=== PATIENT | female | born 1975 | race Caucasian/White ===

== ENCOUNTER 2022-01-11 15:06 | Emergency (ER) | payer BC, SELFPAY ==
--- NOTE | ~2022-01-11 | XR_ITS ---
EXAMINATION: XR ankle LT min 3V DATE: 01/11/2022 15:32 INDICATION: Left ankle injury and swelling. TECHNIQUE: 4 views of left ankle were obtained. COMPARISON: None. FINDINGS: Bone alignment is normal. No fracture. Joint spaces are well maintained. There is an enthes ophyte at plantar aspect of calcaneal tuberosity. There is ankle soft tissue swelling. IMPRESSION: 1. No fracture. Reviewed, dictated and finalized at location A. IMPRESSION: 1. No fracture.
--- NOTE | ~2022-01-11 | XR_ITS ---
EXAMINATION: XR foot LT min 3V DATE: 01/11/2022 15:32 INDICATION: Left foot pain TECHNIQUE: Dorsoplantar, lateral, and 2 oblique views of the left foot were obtained. COMPARISON: None. FINDINGS: Bone alignment is normal. There is marked soft tissue swelling of the dorsal/proximal foot. A subtle heterotopic ossification projects dorsal to the navicular on the lateral view. 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 No additional fracture is identified. A plantar calcaneal enthesophyte is noted. IMPRESSION: 1. Subtle heterotopic ossification projecting dorsal to the navicular on the lateral view which could reflect avulsion injury. Reviewed, dictated and finalized at location B. IMPRESSION: 1. Subtle heterotopic ossification projecting dorsal to the navicular on the la teral view which could reflect avulsion injury.
[2022-01-11 15:14] VITALS: BP 128/96; PULSE 92; RESP 18; TEMP 36.4; O2SAT 100
--- NOTE | 2022-01-11 15:42 | PC.NURSE ---
EDP at bedside to assess pt.
--- NOTE | 2022-01-11 16:01 | ED.LOWEXIN ---
HPI - Extremity Injury (Lower) General Chief Complaint: Extremity Injury, Lower Stated Complaint: left foot injury Time Seen by Provider: 01/11/22 15:37 History of Present Illness HPI Narrative: 46-year-old female presents the emergency room complaints of left foot and ankle pain. Patient states just prior to arrival she misstepped off a curb twisting her her ankle. Related Data Allergies Allergy/AdvReac Type Severity Reaction Status Date / Time acetaminophen [From Vicodin] Allergy Itching Verified 01/11/22 15:13 hydrocodone [From Vicodin] Allergy Itching Verified 01/11/22 15:13 Review of Systems Review of Systems: CONSTITUTIONAL: Denies fever, chills, or sweats. EYES: Denies visual changes, redness, or discharge. ENT: Denies rhinorrhea, congestion, sore throat, or otalgia. CARDIOVASCULAR: Denies chest pain, palpitations, or edema. RESPIRATORY: Denies cough or dyspnea. GASTROINTESTINAL: Denies abdominal pain, nausea, vomiting, or diarrhea. GENITOURINARY: Denies dysuria or hematuria. SKIN: Denies rash or itching. MUSCULOSKELETAL: Reports left foot and ankle pain NEUROLOGIC: Denies headache, numbness, dizziness, or weakness. PSYCHIATRIC: Denies anxiety or depression. Exam Narrative: GENERAL: Well-appearing, well-nourished, no physical limitations, and in no acute distress. HEAD: Normocephalic, atraumatic. EYES: Conjunctivae normal, PERRLA and EOMI. CHEST: Clear to auscultation. No respiratory distress. No wheezes rales or rhonchi. No tenderness. HEART: Regular rate and rhythm. No murmur heard. Normal peripheral pulses. EXTREMITIES: Left foot: Significant soft tissue swelling over the base of the midfoot into the left lateral malleolus. No joint laxity of the ankle, neurovascular is intact distally. SKIN: Warm, dry, no rash. No noted wounds NEURO: No focal deficits. Alert and oriented x3. MAEW. CN's II-XI intact bilaterally, normal gait PSYCH: Cooperative. Normal mood and affect. Course Vital Signs Vital signs: Vital Signs Temperature 36.4 C L 01/11/22 15:14 Pulse Rate 92 01/11/22 15:14 Respiratory Rate 18 01/11/22 15:14 Blood Pressure 128/96 H 01/11/22 15:14 Pulse Oximetry 100 01/11/22 15:14 Temperature 36.4 C L 01/11/22 15:14 Pulse Rate 92 01/11/22 15:14 Respiratory Rate 18 01/11/22 15:14 Blood Pressure 128/96 H 01/11/22 15:14 Pulse Oximetry 100 01/11/22 15:14 MDM - Extremity Injury (Lower) Imaging Data Radiologist's impression: Impressions Ankle X-Ray 01/11/22 15:34 IMPRESSION: 1. No fracture. Foot X-Ray 01/11/22 15:35 IMPRESSION: 1. Subtle heterotopic ossification projecting dorsal to the navicular on the lateral view which could reflect avulsion injury. Discharge Plan Discharge Clinical Impression: Fracture of left foot Patient Disposition: Home, Self-Care Condition: Stable Instructions: Antibiotic Form Additional Instructions: Follow-up with your personal orthopedic physician next week. Recommend ibuprofen, applying ice, and keeping your foot elevated. Also recommend going to the local pharmacy and picking up Ortho boot. May remove your foot from the boot to shower otherwise recommend keeping it on at all times. Prescriptions: New tramadol 50 mg tablet 50 mg PO Q6H PRN (Reason: pain) Qty: 20 0RF Follow-up/Referrals: PHYSICIAN,[employer] SUPERVISOR [Primary Care Provider] - Time of Disposition: 16:05
== END 2022-01-11 16:43 | disposition home or self-care (01) ==
PROVIDERS: Emergency Provider Nurse Practitioner Family
DX: S92.902A Unspecified fracture of left foot, initial encounter for closed fracture (principal); X50.0XXA Overexertion from strenuous movement or load, initial encounter
CPT/HCPCS: 73610; 73630; 99284